=== PATIENT | female | born 1990 | race Two or more races ===

== ENCOUNTER → 2021-02-15 | Outpatient (CLI) | payer SELFPAY ==
[2021-02-18 15:54] LABS: HPV Reflexed? NOT INDICATED
== END | disposition home or self-care (01) ==
LOC: LABSPEC 02-16 09:42
PROVIDERS: Visit Provider Obstetrics & Gynecology
DX: Z12.4 Encounter for screening for malignant neoplasm of cervix (principal)
CPT/HCPCS: 88175; G0145